=== PATIENT | male | born 1950 | race Two or more races ===

== ENCOUNTER 2023-07-12 13:16 | Emergency (ER) | payer SELFPAY ==
[~2023-07-12] VITALS: Ht 167.6 cm; Wt 63.6 kg
[2023-07-12 17:00] VITALS: PULSE 79; RESP 14; O2SAT 94
[2023-07-12 17:04] LABS: Basophils # (auto) 0 10 ^3/uL (0-0.2); Basophils % (auto) 0.2 % (0.0-2.0); Eosinophils # (auto) 0 10 ^3/uL (0-0.8); Eosinophils % (auto) 0.1 % (0.0-7.0); Hematocrit 39.7 % (41.0-53.0); Lymphocytes # (auto) 1.3 10 ^3/uL (0.4-5.4); Lymphocytes % (auto) 7.4 % (10.0-50.0); Mean Corpuscular Hemoglobin 29.5 pg (28.0-32.0); Mean Corpuscular Hgb Conc. 32.8 g/dL (32.0-36.0); Monocytes % (auto) 5.3 % (0.0-12.0); Neutrophils # (auto) 15.8 10 ^3/uL (1.6-8.6); Red Cell Distribution Width 18.4 % (11.8-14.3); White Blood Cell 18.2 10^3/uL (4.4-10.8)
[2023-07-12 17:27] LABS: Chloride 109 mmol/L (98-107); Potassium 3.2 mmol/L (3.5-5.1); Sodium 142 mmol/L (136-145)
[2023-07-12 17:28] LABS: Anion Gap 10 (5-15); Carbon Dioxide 23 mmol/L (20-30)
[2023-07-12 17:30] VITALS: BP 135/71; PULSE 82; RESP 22; TEMP 97.9; O2SAT 93
[2023-07-12 17:33] LABS: BUN/Creatinine Ratio 18.9 (10.0-20.0); Blood Urea Nitrogen 14 mg/dL (9-23); Glucose 136 mg/dL (74-106)
== END 2023-07-12 17:51 | disposition short-term general hospital (02) ==
LOC: ER 13:20
DX: S22.088A Other fracture of T11-T12 vertebra, initial encounter for closed fracture (principal); S32.018A Other fracture of first lumbar vertebra, initial encounter for closed fracture; S22.31XA Fracture of one rib, right side, initial encounter for closed fracture; S06.5X0A Traumatic subdural hemorrhage without loss of consciousness, initial encounter; S00.03XA Contusion of scalp, initial encounter; W11.XXXA Fall on and from ladder, initial encounter; Y93.89 Activity, other specified; Y92.89 Other specified places as the place of occurrence of the external cause; Y99.8 Other external cause status
CPT/HCPCS: 36415; 70450; 71045; 72125; 72131; 72192; 80048; 85025